=== PATIENT | male | born 1995 | race Caucasian/White ===

== ENCOUNTER 2021-03-19 12:52 | Emergency (ER) | payer OTHER, SELFPAY ==
[2021-03-19 13:10] VITALS: BP 133/72; PULSE 99; RESP 16; TEMP 37.4; O2SAT 99
--- NOTE | 2021-03-19 13:36 | ED.URI ---
HPI - URI/Sore Throat General Chief Complaint: Upper Respiratory Infection Stated Complaint: congestion/ear pain/sore throat Source: patient and RN notes reviewed Mode of arrival: ambulatory History of Present Illness HPI Narrative: This is a 25-year-old male who presented to urgent care with complaints of sore throat, febrile, congestion, productive cough with use of a sputum and ear congestion that he has had since Wednesday. According to patient he has recently been tested for Covid and influenza will be negative today he was tested for strep which was negative. Patient given antibiotics based off symptoms along. The patient denies SOB, CP, palpitation, extremity numbness, lightheadedness, dizziness, constipation, diarrhea, chills, or fever. Related Data Allergies Allergy/AdvReac Type Severity Reaction Status Date / Time No Known Allergies Allergy Mild Verified 03/19/21 13:07 Review of Systems Review of Systems: A 14 organ system Review of Systems was performed and pertinent positives included in the HPI, otherwise remaining ROS is negative. [facility] Family History Family History (Updated 08/05/15 @ 16:19 by DOCTOR UNKNOWN) Father Family history of elevated blood lipids Mother Family history of elevated blood lipids Family history of malignant neoplasm Grandparent Cerebrovascular accident Family history of malignant neoplasm Carcinoma of colon Family history of emphysema Family history of congestive heart failure Family history of heart disease in male family member before age 55 Diabetes mellitus Social History Social History Smoking status: Never smoker Alcohol intake: never Exam Narrative: GENERAL: This is a well-nourished, well-developed patient, in no apparent distress. HEAD: normocephalic, atraumatic. Maxillary tenderness EYES: PERRL. Sclera clear/white. Vision is grossly intact. EARS: External ears normal, auditory canals clear and without drainage, TMs normal without perforation. Hearing grossly intact. NOSE: External nose normal with no obvious nasal discharge, nares without redness, no rhinorrhea. THROAT: Mucous membranes moist, posterior pharynx with erythematous. NECK: Neck supple, non-tender without lymphadenopathy, masses or thyromegaly. CARDIOVASCULAR: Regular rate and rhythm without murmurs, gallops, or rubs. RESPIRATORY: Clear to auscultation. Breath sounds equal bilaterally. No wheezes, rales, or rhonchi. GASTROINTESTINAL: Abdomen soft, non-tender, nondistended. Bowel sounds are active. No hepato-splenomegaly, or palpable masses. No guarding. SKIN: warm, intact with no suspicious lesions or rash, good texture and turgor. NEURO: awake, alert, and oriented to person, place and time. There were no obvious focal neurologic abnormalities. Steady gait EXTREMITIES: Normal range of motion. No edema. No calf tenderness. Negative Homans sign bilaterally. BACK: Nontender without deformity or crepitance. No flank tenderness. She had 71 the patient requires a wheeled walker to perform ADLs in the home due to weakness/debility. The patient is not able to perform ADLs using a cane. Functional mobility deficit will be sufficiently resolved by using a walker. The patient is able to safely use the walker and agree to use the walker. They may use Course Course Emergency Course: Patient will be given Augmentin and treated for cellulitis of foot assessment along she was also given Tessalon pearls and guaifenesin Vital Signs Vital signs: Vital Signs Temperature 99.4 F 03/19/21 13:10 Pulse Rate 99 03/19/21 13:10 Respiratory Rate 16 03/19/21 13:10 Blood Pressure 133/72 03/19/21 13:10 Pulse Oximetry 99 03/19/21 13:10 Temperature 99.4 F 03/19/21 13:10 Pulse Rate 99 03/19/21 13:10 Respiratory Rate 16 03/19/21 13:10 Blood Pressure 133/72 03/19/21 13:10 Pulse Oximetry 99 03/19/21 13:10 MDM - URI/Sore Throat Differential Diagnosis Differential diagnosis: Likely uppe
== END 2021-03-19 13:58 | disposition home or self-care (01) ==
PROVIDERS: Emergency Provider Nurse Practitioner; PCP Internal Medicine
DX: J01.00 Acute maxillary sinusitis, unspecified (principal)
CPT/HCPCS: 87081; 87880; 99213; G0463